=== PATIENT | female | born 1930 | race Hispanic/Latino ===

== ENCOUNTER 2018-05-05 10:01 | Emergency (ER) | payer OTHER ==
[2018-05-05 10:35] LABS: APPEARANCE,URINE Clear (CLEAR); BILIRUBIN,URINE Negative (NEGATIVE); COLOR,URINE Yellow (YELLOW); GLUCOSE, URINE (UA) Negative (NEGATIVE); KETONES,URINE Negative (NEGATIVE); LEUKOCYTE ESTERASE ,URINE Moderate (NEGATIVE); NITRATE,URINE Negative (NEGATIVE); OCCULT BLOOD,URINE Moderate (NEGATIVE); PROTEIN,URINE Trace (NEGATIVE)
[2018-05-05 10:50] LABS: WBC,URINE 0-1 /HPF (0-1)
[2018-05-05 10:51] LABS: BACTERIA,URINE Few /HPF (None Seen)
[2018-05-05] MEDS ORDERED: KETOROLAC TROMETHAMINE 15MG/ML ONE (10:55)
[2018-05-05] MEDS ORDERED: DIAZEPAM 2 MG TAB ONE (10:56)
== END 2018-05-05 13:30 | disposition home or self-care (01) ==
LOC: EDH 10:01
DX: M48.56XA Collapsed vertebra, not elsewhere classified, lumbar region, initial encounter for fracture (principal); E07.9 Disorder of thyroid, unspecified; I10 Essential (primary) hypertension; Z88.0 Allergy status to penicillin
CPT/HCPCS: 72100; 81001; 96372; 99285; J1885

== ENCOUNTER 2018-05-07 09:04 | Inpatient (IN) | payer OTHER ==
[~2018-05-07] VITALS: Ht 157.5 cm; Wt 63.1 kg
[2018-05-07 09:34] LABS: BASOPHILS % (AUTO) 0.3 % (0.0-5.0); EOSINOPHILS % (AUTO) 0.2 % (0.0-8.0); HEMATOCRIT 46.3 % (36-48); LYMPHOCYTES % (AUTO) 6.6 % (21.0-51.0); MEAN CORPUSCULAR HEMOGLOBIN 32.7 pg (27.0-33.0); MEAN CORPUSCULAR HGB CONC 34.3 g/dL (32.0-36.0); MEAN CORPUSCULAR VOLUME 95.5 fL (79-99); MONOCYTES % (AUTO) 15.1 % (3.0-13.0); NEUTROPHILS % (AUTO) 77.8 % (40.0-77.0); PLATELET COUNT (AUTO) 146 K/uL (130-400); RED BLOOD CELL COUNT(AUTO) 4.85 MIL/uL (4.00-5.50); RED CELL DISTRIBUTION WIDTH 13.1 % (11.0-15.5); WHITE BLOOD COUNT (AUTO) 10.4 K/uL (4.8-10.8)
[2018-05-07] MEDS ORDERED: FENTANYL CITRATE PF 50 MCG/1 ML 2ML VIAL ONE (09:40)
[2018-05-07 09:42] LABS: CREATININE 0.7 mg/dL (0.5-1.5)
[2018-05-07 09:51] LABS: ALBUMIN 3.8 g/dL (3.5-5.0); BILIRUBIN,DIRECT 0.3 mg/dL (0.0-0.3); BILIRUBIN,TOTAL 1.2 mg/dL (0.2-1.0); TOTAL PROTEIN, SERUM 7.7 g/dL (6.0-8.3)
[2018-05-07 09:54] LABS: INR 1.01 (0.85-1.15); PARTIAL THROMBOPLASTIN TIME 28.2 SEC (26.3-35.5); PROTHROMBIN TIME 10.6 SEC (9.6-11.6)
[2018-05-07] MEDS ORDERED: KETOROLAC TROMETHAMINE 15MG/ML ONE (10:26)
[2018-05-07] MEDS ORDERED: METOPROLOL TARTRATE 1 MG/ML 5ML VIAL IV ONE (10:26)
[2018-05-07 12:38] LABS: APPEARANCE,URINE Clear (CLEAR); BILIRUBIN,URINE Negative (NEGATIVE); COLOR,URINE Dark Yellow (YELLOW); GLUCOSE, URINE (UA) Negative (NEGATIVE); KETONES,URINE 15 mg/dL (NEGATIVE); LEUKOCYTE ESTERASE ,URINE Trace (NEGATIVE); NITRATE,URINE Negative (NEGATIVE); OCCULT BLOOD,URINE Nonhemolyzed Trace (NEGATIVE); PROTEIN,URINE Trace (NEGATIVE)
[2018-05-07 12:55] LABS: BACTERIA,URINE Rare /HPF (None Seen); SQUAMOUS EPITHELIAL CELL,UR 0-2 /HPF (0-2); WBC,URINE 0-1 /HPF (0-1)
[2018-05-07] MEDS ORDERED: METO-408 PO (13:25)
[2018-05-07] MEDS ORDERED: LOSA1TAB42 PO (13:25)
[2018-05-07] MEDS ORDERED: CYAN-35 PO (13:25)
[2018-05-07] MEDS ORDERED: DOCO1CAP5 PO (13:25)
[2018-05-07] MEDS ORDERED: SIMV20TA6 PO (13:25)
[2018-05-07] MEDS ORDERED: CHOL200013 PO (13:25)
[2018-05-07] MEDS ORDERED: LEVO112T7 PO (13:25)
[2018-05-07] MEDS ORDERED: ASPI-555 PO (13:25)
[2018-05-07] MEDS ORDERED: MULT-1203 PO (13:25)
[2018-05-07] MEDS ORDERED: UMEC1DIS IH (13:27)
[2018-05-07 13:30] VITALS: BP 151/85
[2018-05-07] MEDS ORDERED: METOPROLOL TARTRATE 1 MG/ML 5ML VIAL IV PRN (13:45)
[2018-05-07 15:26] LABS: CREATINE KINASE, TOTAL 37 U/L (21-232); MYOGLOBIN 55 ng/mL (10-92); TROPONIN I < 0.04 ng/mL (0.00-0.06)
[2018-05-07 16:00] VITALS: BP 145/92
[2018-05-07] MEDS ORDERED: ENOX60DI8 SQ (16:20)
[2018-05-07] MEDS: ACETAMINOPHEN-CODEINE 300/30MG TAB PO PRN ×2 (16:49→23:42)
[2018-05-07 17:00] LABS: HEMATOCRIT 44.5 % (36-48); MEAN CORPUSCULAR HEMOGLOBIN 33.1 pg (27.0-33.0); MEAN CORPUSCULAR HGB CONC 34.8 g/dL (32.0-36.0); NUCLEATED RED BLOOD CELLS 0.1 % (0.0-0.19); PLATELET COUNT (AUTO) 172 K/uL (130-400); RED BLOOD CELL COUNT(AUTO) 4.68 MIL/uL (4.00-5.50); WHITE BLOOD COUNT (AUTO) 10.8 K/uL (4.8-10.8)
[2018-05-07 19:47] VITALS: BP 118/85
[2018-05-07] MEDS ORDERED: APIXABAN 5 MG TABLET PO SCH (21:00)
[2018-05-07 21:25] LABS: CREATINE KINASE, TOTAL 36 U/L (21-232); MYOGLOBIN 44 ng/mL (10-92); TROPONIN I < 0.04 ng/mL (0.00-0.06)
[2018-05-08] VITALS (7 sets, daily range): BP systolic 122–155; BP diastolic 71–80
[2018-05-08 08:36] LABS: ALBUMIN 3.5 g/dL (3.5-5.0); BILIRUBIN,TOTAL 1.4 mg/dL (0.2-1.0); CREATININE 0.7 mg/dL (0.5-1.5); POTASSIUM 5.3 mmol/L (3.5-5.1); TOTAL PROTEIN, SERUM 7.6 g/dL (6.0-8.3)
[2018-05-08] MEDS: HYDROMORPHONE 1 MG/1 ML AMP IVP PRN (08:41)
[2018-05-08] MEDS: CYANOCOBALAMIN (VITAMIN B-12) 1,000 MCG TABLET PO SCH (08:41)
[2018-05-08] MEDS: METOPROLOL TARTRATE 25 MG TAB PO SCH ×3 (08:41→20:44)
[2018-05-08] MEDS: MULTIVITAMIN TABLET PO SCH (08:41)
[2018-05-08] MEDS: **HM** ANORO ELLIPTA 62.5-25MCG IH SCH (09:00)
[2018-05-08] MEDS ORDERED: SIMVASTATIN 20 MG TABLET PO SCH (09:00)
[2018-05-08] MEDS ORDERED: LEVOTHYROXINE 112 MCG TABLET PO SCH (09:00)
[2018-05-08] MEDS: **HM** VIT D3 2000 UNITS PO SCH (09:00)
[2018-05-08] MEDS ORDERED: ENOXAPARIN SODIUM 60 MG/0.6 ML SQ SCH ×2 (09:15→21:00)
[2018-05-08] MEDS: SODIUM CHLORIDE 0.9% 1000ML 1,000 ML IV SCH ×2 (09:23→22:16)
[2018-05-08] MEDS: CALCITONIN 3.7 ML AEROSOL NS SCH (11:27)
[2018-05-08] MEDS: SIMVASTATIN 20 MG TABLET PO SCH (20:43)
[2018-05-08] MEDS: APIXABAN 5 MG TABLET PO SCH (20:43)
[2018-05-08] MEDS ORDERED: ENOXAPARIN SODIUM 1 MG/KG SQ SCH (21:00)
[2018-05-08] MEDS: ACETAMINOPHEN-CODEINE 300/30MG TAB PO PRN (21:06)
[2018-05-09] MEDS: SODIUM CHLORIDE 0.9% 1000ML 1,000 ML IV SCH (02:16)
[2018-05-09 03:38] VITALS: BP 132/81
[2018-05-09] MEDS: LEVOTHYROXINE 112 MCG TABLET PO SCH (06:11)
[2018-05-09 07:35] LABS: HEMATOCRIT 42.1 % (36-48); MEAN CORPUSCULAR HEMOGLOBIN 32.7 pg (27.0-33.0); MEAN CORPUSCULAR HGB CONC 34.1 g/dL (32.0-36.0); PLATELET COUNT (AUTO) 126 K/uL (130-400); RED BLOOD CELL COUNT(AUTO) 4.39 MIL/uL (4.00-5.50); WHITE BLOOD COUNT (AUTO) 7.8 K/uL (4.8-10.8)
[2018-05-09 07:39] VITALS: BP 142/74
[2018-05-09 07:48] LABS: BILIRUBIN,TOTAL 1.1 mg/dL (0.2-1.0); CREATININE 0.6 mg/dL (0.5-1.5); POTASSIUM 5.2 mmol/L (3.5-5.1)
[2018-05-09] MEDS: APIXABAN 5 MG TABLET PO SCH ×2 (08:08→20:12)
[2018-05-09] MEDS: METOPROLOL TARTRATE 25 MG TAB PO SCH ×2 (08:08→20:12)
[2018-05-09] MEDS: CYANOCOBALAMIN (VITAMIN B-12) 1,000 MCG TABLET PO SCH (08:09)
[2018-05-09] MEDS: CALCITONIN 3.7 ML AEROSOL NS SCH (08:09)
[2018-05-09] MEDS: MULTIVITAMIN TABLET PO SCH (08:09)
[2018-05-09] MEDS: **HM** ANORO ELLIPTA 62.5-25MCG IH SCH (09:00)
[2018-05-09] MEDS: **HM** VIT D3 2000 UNITS PO SCH (09:00)
[2018-05-09] MEDS: ACETAMINOPHEN-CODEINE 300/30MG TAB PO PRN (10:00)
[2018-05-09 12:10] VITALS: BP 140/78
[2018-05-09 16:00] VITALS: BP 123/73
[2018-05-09 19:39] VITALS: BP 130/72
[2018-05-09] MEDS: SIMVASTATIN 20 MG TABLET PO SCH (20:12)
[2018-05-09 23:30] VITALS: BP 136/69
[2018-05-10 03:31] VITALS: BP 138/77
[2018-05-10] MEDS: LEVOTHYROXINE 112 MCG TABLET PO SCH (06:15)
[2018-05-10 07:00] VITALS: BP 155/89
[2018-05-10] MEDS: CEFTRIAXONE SODIUM 1 GM IVP SCH (08:14)
[2018-05-10] MEDS: MULTIVITAMIN TABLET PO SCH (08:14)
[2018-05-10] MEDS: CYANOCOBALAMIN (VITAMIN B-12) 1,000 MCG TABLET PO SCH (08:15)
[2018-05-10] MEDS: **HM** VIT D3 2000 UNITS PO SCH (08:15)
[2018-05-10] MEDS: METOPROLOL TARTRATE 25 MG TAB PO SCH ×2 (08:15→19:18)
[2018-05-10] MEDS: **HM** ANORO ELLIPTA 62.5-25MCG IH SCH (08:18)
[2018-05-10] MEDS: CALCITONIN 3.7 ML AEROSOL NS SCH (08:18)
[2018-05-10] MEDS: APIXABAN 5 MG TABLET PO SCH ×2 (08:33→19:18)
[2018-05-10] MEDS: ACETAMINOPHEN-CODEINE 300/30MG TAB PO PRN ×3 (08:39→23:35)
[2018-05-10 08:55] LABS: APPEARANCE,URINE TURBID (CLEAR); BILIRUBIN,URINE SMALL (NEGATIVE); COLOR,URINE ORANGE (YELLOW); GLUCOSE, URINE (UA) NEGATIVE (NEGATIVE); KETONES,URINE 40 mg/dL (NEGATIVE); LEUKOCYTE ESTERASE ,URINE LARGE (NEGATIVE); NITRATE,URINE POSITIVE (NEGATIVE); OCCULT BLOOD,URINE LARGE (NEGATIVE); PH,URINE 8.5 (5.0-8.0); PROTEIN,URINE >=300 (NEGATIVE)
[2018-05-10 09:26] LABS: BACTERIA,URINE Many /HPF (None Seen)
[2018-05-10 09:28] LABS: RBC,URINE 51-100 /HPF (0-1); TRIPLE PHOSPHATE CRYSTAL,UR Moderate /LPF (None Seen)
[2018-05-10 11:00] VITALS: BP 135/75
[2018-05-10] MEDS: SODIUM CHLORIDE 0.9% 1000ML 1,000 ML IV SCH ×2 (13:20)
[2018-05-10 16:00] VITALS: BP 124/62
[2018-05-10 19:16] VITALS: BP 131/76
[2018-05-10] MEDS: SIMVASTATIN 20 MG TABLET PO SCH (19:18)
[2018-05-10 23:42] VITALS: BP 148/92
[2018-05-11] MEDS: HYDROMORPHONE 1 MG/1 ML AMP IVP PRN ×3 (03:50→22:09)
[2018-05-11 04:05] VITALS: BP 121/70
[2018-05-11] MEDS: CEFTRIAXONE SODIUM 1 GM IVP SCH (06:15)
[2018-05-11] MEDS: LEVOTHYROXINE 112 MCG TABLET PO SCH (06:15)
[2018-05-11] MEDS: CALCITONIN 3.7 ML AEROSOL NS SCH (06:19)
[2018-05-11 07:23] VITALS: BP 133/77
[2018-05-11 08:13] LABS: CREATININE 0.5 mg/dL (0.5-1.5); POTASSIUM 4.3 mmol/L (3.5-5.1)
[2018-05-11] MEDS: **HM** VIT D3 2000 UNITS PO SCH (09:00)
[2018-05-11] MEDS: **HM** ANORO ELLIPTA 62.5-25MCG IH SCH (09:00)
[2018-05-11] MEDS: APIXABAN 5 MG TABLET PO SCH ×2 (09:21→20:47)
[2018-05-11] MEDS: CYANOCOBALAMIN (VITAMIN B-12) 1,000 MCG TABLET PO SCH (09:21)
[2018-05-11] MEDS: MULTIVITAMIN TABLET PO SCH (09:21)
[2018-05-11] MEDS: METOPROLOL TARTRATE 25 MG TAB PO SCH ×2 (09:21→20:47)
[2018-05-11 11:14] VITALS: BP 125/69
[2018-05-11 16:22] VITALS: BP 131/72
[2018-05-11 19:42] VITALS: BP 139/91
[2018-05-11] MEDS: SIMVASTATIN 20 MG TABLET PO SCH (20:47)
[2018-05-11 23:45] VITALS: BP 156/86
[2018-05-12 04:07] VITALS: BP 142/90
[2018-05-12] MEDS: LEVOTHYROXINE 112 MCG TABLET PO SCH (05:53)
[2018-05-12 07:49] VITALS: BP 146/90
[2018-05-12] MEDS: CYANOCOBALAMIN (VITAMIN B-12) 1,000 MCG TABLET PO SCH (09:16)
[2018-05-12] MEDS: MULTIVITAMIN TABLET PO SCH (09:16)
[2018-05-12] MEDS: METOPROLOL TARTRATE 25 MG TAB PO SCH (09:16)
[2018-05-12] MEDS: APIXABAN 5 MG TABLET PO SCH (09:16)
[2018-05-12] MEDS: CEFTRIAXONE SODIUM 1 GM IVP SCH (09:16)
[2018-05-12 11:06] VITALS: BP 159/99
[2018-05-12] MEDS ORDERED: FUROSEMIDE 10 MG/ML 2ML VIAL IV SCH (11:30)
[2018-05-12] MEDS: ACETAMINOPHEN-CODEINE 300/30MG TAB PO PRN (13:37)
[2018-05-12] MEDS ORDERED: IPRATROPIUM/ALBUTEROL SULFATE 3 ML SOLUTION IH SCH (14:00)
[2018-05-12 16:04] VITALS: BP 135/79
== END 2018-05-12 18:31 | DRG 543 ==
LOC: EDH 09:04 → EDHIP 11:30 → OBSVTOIN 11:30 → 2AH 13:19
PROVIDERS: ADMIT Internal Medicine Nephrology; ATTEND Internal Medicine Nephrology
DX: M80.08XA Age-related osteoporosis with current pathological fracture, vertebra(e), initial encounter for fracture (principal); N39.0 Urinary tract infection, site not specified; I48.1 Persistent atrial fibrillation; I10 Essential (primary) hypertension; E87.5 Hyperkalemia; J44.9 Chronic obstructive pulmonary disease, unspecified; E78.5 Hyperlipidemia, unspecified; E03.9 Hypothyroidism, unspecified; B96.20 Unspecified Escherichia coli [E. coli] as the cause of diseases classified elsewhere; Z90.710 Acquired absence of both cervix and uterus; Z86.11 Personal history of tuberculosis; Z98.42 Cataract extraction status, left eye; Z98.41 Cataract extraction status, right eye; Z88.0 Allergy status to penicillin; Z83.3 Family history of diabetes mellitus
CPT/HCPCS: 36415; 71045; 72100; 72131; 80048; 80053; 80076; 81001; 82550; 83690; 83874; 84484; 85025; 85027; 85610; 85730; 87077; 87088; 87186; 93005; 94640; 94664; 96372; 97039; A4218; A4344; J0696; J1170; J1650; J1885; J1940; J3010; J3490; J7030

== ENCOUNTER 2018-05-31 13:21 | Inpatient (IN) | payer OTHER ==
[~2018-05-31] VITALS: Ht 157.5 cm; Wt 57.9 kg
[~2018-05-31 13:21] MED LIST: ASPI-555 PO; CHOL200013 PO; CYAN-35 PO; DOCO1CAP5 PO; ENOX60DI8 SQ; LEVO112T7 PO; LOSA1TAB42 PO; METO-408 PO; MULT-1203 PO; SIMV20TA6 PO; UMEC1DIS IH
[2018-05-31] MEDS ORDERED: METHYLPREDNISOLONE SOD SUCC 125MG/2ML VIAL ONE (13:47)
[2018-05-31 14:02] LABS: CREATININE 0.7 mg/dL (0.5-1.5); POTASSIUM 4.2 mmol/L (3.5-5.1)
[2018-05-31 14:06] LABS: ALBUMIN 3.8 g/dL (3.5-5.0); BILIRUBIN,TOTAL 1.4 mg/dL (0.2-1.0); TOTAL PROTEIN, SERUM 7.9 g/dL (6.0-8.3)
[2018-05-31 14:07] LABS: B-TYPE NATRIURETIC PEPTIDE 407 pg/mL (0-100); BASOPHILS % (AUTO) 0.4 % (0.0-5.0); EOSINOPHILS % (AUTO) 0.2 % (0.0-8.0); HEMATOCRIT 44.3 % (36-48); LYMPHOCYTES % (AUTO) 15.1 % (21.0-51.0); MEAN CORPUSCULAR HEMOGLOBIN 33.4 pg (27.0-33.0); MEAN CORPUSCULAR HGB CONC 34.6 g/dL (32.0-36.0); MEAN CORPUSCULAR VOLUME 96.6 fL (79-99); MONOCYTES % (AUTO) 17.1 % (3.0-13.0); NEUTROPHILS % (AUTO) 67.2 % (40.0-77.0); PLATELET COUNT (AUTO) 165 K/uL (130-400); RED BLOOD CELL COUNT(AUTO) 4.59 MIL/uL (4.00-5.50); RED CELL DISTRIBUTION WIDTH 13.6 % (11.0-15.5); WHITE BLOOD COUNT (AUTO) 6.7 K/uL (4.8-10.8)
[2018-05-31 14:10] LABS: ABG BASE EXCESS -1.9 mmol/L (-2.0-3.0); ABG HCO3 21.1 mmol/L (21.0-28.0); ABG OXYGEN SATURATION 98.3 % (95.0-99.0); ABG PCO2 32 mmHg (32-45)
[2018-05-31] MEDS ORDERED: IPRATROPIUM/ALBUTEROL SULFATE 3 ML SOLUTION IH ONE (14:10)
[2018-05-31 14:16] LABS: CREATINE KINASE, TOTAL 28 U/L (21-232); MYOGLOBIN 29 ng/mL (10-92); TROPONIN I < 0.04 ng/mL (0.00-0.06)
[2018-05-31] MEDS ORDERED: LABETALOL 20 MG/4 ML DISP.SYRIN IV ONE (14:34)
[2018-05-31] MEDS ORDERED: LEVOFLOXACIN 750 MG/D5W 150 ML 150 ML ONE (15:11)
[2018-05-31] MEDS ORDERED: FUROSEMIDE 10 MG/ML 2ML VIAL ONE (15:11)
[2018-05-31 16:35] VITALS: BP 155/93
[2018-05-31] MEDS ORDERED: NA P133E22 RC (17:38)
[2018-05-31] MEDS ORDERED: LIDO700A30 TP (17:38)
[2018-05-31] MEDS ORDERED: METO25TA6 PO (17:38)
[2018-05-31] MEDS ORDERED: BISA10S PR (17:38)
[2018-05-31] MEDS ORDERED: ACET325C5 PO (17:38)
[2018-05-31] MEDS ORDERED: LOPE2CAP PO (17:38)
[2018-05-31] MEDS ORDERED: APIX5TAB PO (17:38)
[2018-05-31] MEDS ORDERED: TYL3 PO (17:38)
[2018-05-31] MEDS ORDERED: IPRA3AMP24 IH (17:38)
[2018-05-31] MEDS ORDERED: CALC3.8S NASAL (17:38)
[2018-05-31] MEDS ORDERED: MOM30 PO (17:38)
[2018-05-31] MEDS ORDERED: AMIO200T5 PO (17:39)
[2018-05-31] MEDS: IPRATROPIUM/ALBUTEROL SULFATE 3 ML SOLUTION IH SCH ×2 (18:03→23:29)
[2018-05-31] MEDS: BUDESONIDE 0.5 MG/2 ML INH IH SCH (18:03)
[2018-05-31 20:00] VITALS: BP 160/61
[2018-06-01] VITALS (7 sets, daily range): BP systolic 125–156; BP diastolic 72–98
[2018-06-01] MEDS: METHYLPREDNISOLONE SOD SUCC 40MG/ML 1ML IVP SCH ×3 (02:00→15:17)
[2018-06-01 05:27] LABS: HEMATOCRIT 42.6 % (36-48); MEAN CORPUSCULAR HEMOGLOBIN 32.3 pg (27.0-33.0); MEAN CORPUSCULAR HGB CONC 33.5 g/dL (32.0-36.0); MEAN CORPUSCULAR VOLUME 96.5 fL (79-99); NUCLEATED RED BLOOD CELLS 0.1 % (0.0-0.19); PLATELET COUNT (AUTO) 153 K/uL (130-400); RED BLOOD CELL COUNT(AUTO) 4.42 MIL/uL (4.00-5.50); RED CELL DISTRIBUTION WIDTH 13.5 % (11.0-15.5); WHITE BLOOD COUNT (AUTO) 2.5 K/uL (4.8-10.8)
[2018-06-01 05:39] LABS: CREATININE 0.8 mg/dL (0.5-1.5); POTASSIUM 3.7 mmol/L (3.5-5.1)
[2018-06-01 05:44] LABS: LYMPHOCYTES % (MANUAL) 28 % (22-44); MAN.DIFF COMMENT-IMPRESSION MANUAL DIFFERENTIAL; SEGMENTED NEUTROPHILS % 72 % (40-70)
[2018-06-01 05:45] LABS: PLATELET MORPHOLOGY COMMENT ADEQUATE
[2018-06-01] MEDS: IPRATROPIUM/ALBUTEROL SULFATE 3 ML SOLUTION IH SCH ×4 (06:20→23:52)
[2018-06-01] MEDS: BUDESONIDE 0.5 MG/2 ML INH IH SCH ×2 (06:20→18:46)
[2018-06-01] MEDS ORDERED: ACETAMINOPHEN 325 MG TAB PO PRN (08:15)
[2018-06-01] MEDS ORDERED: LOPERAMIDE HCL 2 MG CAP PO PRN (08:15)
[2018-06-01] MEDS ORDERED: FUROSEMIDE 10 MG/ML 2ML VIAL IV SCH (08:15)
[2018-06-01] MEDS ORDERED: BISACODYL 10 MG SUPP.RECT RC PRN (08:15)
[2018-06-01] MEDS ORDERED: NA PHOS DI BA PR PRN (08:15)
[2018-06-01] MEDS ORDERED: MAGNESIUM HYDROXIDE 30 ML/UDCUP PO PRN (08:15)
[2018-06-01] MEDS ORDERED: ACETAMINOPHEN-CODEINE 300/30MG TAB PO PRN (08:15)
[2018-06-01] MEDS ORDERED: NA PHOS M B PR PRN (08:15)
[2018-06-01] MEDS ORDERED: NON-FORMULARY MEDICATION 1 EACH (Umeclidinium Brm/Vilanterol Tr (Anoro Ellipta 62.5-25 Mcg IH SCH (09:00)
[2018-06-01] MEDS: ***HM***(Cholecalciferol (Vitamin D3) (Vitamin D3) 2,000 UNIT) PO SCH (09:00)
[2018-06-01] MEDS: METOPROLOL TARTRATE 25 MG TAB PO SCH ×2 (09:14→21:14)
[2018-06-01] MEDS: FISH OIL 1000 MG/CAP PO SCH (09:14)
[2018-06-01] MEDS: LIDOCAINE 5% TOPICAL PATCH TP SCH (09:14)
[2018-06-01] MEDS: AMIODARONE HCL 200 MG TABLET PO SCH ×2 (09:14→21:14)
[2018-06-01] MEDS: MULTIVITAMIN TABLET PO SCH (09:14)
[2018-06-01] MEDS: CYANOCOBALAMIN (VITAMIN B-12) 1,000 MCG TABLET PO SCH (09:14)
[2018-06-01] MEDS: APIXABAN 5 MG TABLET PO SCH ×2 (09:14→21:14)
[2018-06-01] MEDS: LEVOTHYROXINE 112 MCG TABLET PO SCH (09:15)
[2018-06-01] MEDS: LEVOFLOXACIN 500 MG/D5W 100 ML IV SCH (15:17)
[2018-06-01] MEDS: SIMVASTATIN 20 MG TABLET PO SCH (21:14)
[2018-06-02] MEDS: METHYLPREDNISOLONE SOD SUCC 40MG/ML 1ML IVP SCH ×2 (02:56→17:50)
[2018-06-02 03:55] VITALS: BP 137/81
[2018-06-02 05:07] LABS: BASOPHILS % (AUTO) 0.1 % (0.0-5.0); HEMATOCRIT 41.8 % (36-48); LYMPHOCYTES % (AUTO) 7.1 % (21.0-51.0); MEAN CORPUSCULAR HEMOGLOBIN 33.4 pg (27.0-33.0); MEAN CORPUSCULAR HGB CONC 34.5 g/dL (32.0-36.0); MEAN CORPUSCULAR VOLUME 96.7 fL (79-99); MONOCYTES % (AUTO) 6.2 % (3.0-13.0); NEUTROPHILS % (AUTO) 86.6 % (40.0-77.0); PLATELET COUNT (AUTO) 169 K/uL (130-400); RED BLOOD CELL COUNT(AUTO) 4.32 MIL/uL (4.00-5.50); RED CELL DISTRIBUTION WIDTH 13.6 % (11.0-15.5); WHITE BLOOD COUNT (AUTO) 9.4 K/uL (4.8-10.8)
[2018-06-02 05:24] LABS: CREATININE 0.8 mg/dL (0.5-1.5); POTASSIUM 4.2 mmol/L (3.5-5.1)
[2018-06-02] MEDS: LEVOTHYROXINE 112 MCG TABLET PO SCH (06:26)
[2018-06-02] MEDS: IPRATROPIUM/ALBUTEROL SULFATE 3 ML SOLUTION IH SCH ×4 (06:41→23:07)
[2018-06-02] MEDS: BUDESONIDE 0.5 MG/2 ML INH IH SCH ×2 (06:41→18:46)
[2018-06-02] MEDS ORDERED: CALCITONIN 3.7 ML AEROSOL NS SCH ×2 (07:30→09:48)
[2018-06-02 08:00] VITALS: BP 142/78
[2018-06-02] MEDS: ***HM***(Cholecalciferol (Vitamin D3) (Vitamin D3) 2,000 UNIT) PO SCH (08:42)
[2018-06-02] MEDS: AMIODARONE HCL 200 MG TABLET PO SCH ×2 (08:49→20:38)
[2018-06-02] MEDS: LOSARTAN 50 MG TABLET PO SCH (08:49)
[2018-06-02] MEDS: METOPROLOL TARTRATE 25 MG TAB PO SCH ×2 (08:49→20:38)
[2018-06-02] MEDS: FISH OIL 1000 MG/CAP PO SCH (08:50)
[2018-06-02] MEDS: CYANOCOBALAMIN (VITAMIN B-12) 1,000 MCG TABLET PO SCH (08:50)
[2018-06-02] MEDS: MULTIVITAMIN TABLET PO SCH (08:50)
[2018-06-02] MEDS: APIXABAN 5 MG TABLET PO SCH ×2 (08:50→20:38)
[2018-06-02] MEDS: LIDOCAINE 5% TOPICAL PATCH TP SCH (08:51)
[2018-06-02 12:00] VITALS: BP 128/82
[2018-06-02 16:00] VITALS: BP 120/73
[2018-06-02] MEDS: SPIRONOLACTONE 25 MG TAB PO SCH (17:30)
[2018-06-02] MEDS: FUROSEMIDE 40 MG TABLET PO SCH (17:30)
[2018-06-02] MEDS ORDERED: FUROSEMIDE 40 MG TABLET ONE (17:41)
[2018-06-02] MEDS ORDERED: SPIRONOLACTONE 25 MG TAB ONE (17:42)
[2018-06-02] MEDS: LEVOFLOXACIN 500 MG/D5W 100 ML IV SCH (17:50)
[2018-06-02 19:10] VITALS: BP 125/77
[2018-06-02] MEDS: SIMVASTATIN 20 MG TABLET PO SCH (20:38)
[2018-06-03 00:10] VITALS: BP 133/73
[2018-06-03] MEDS: METHYLPREDNISOLONE SOD SUCC 40MG/ML 1ML IVP SCH ×2 (03:07→14:18)
[2018-06-03 04:30] VITALS: BP 130/86
[2018-06-03 06:01] LABS: CREATININE 0.8 mg/dL (0.5-1.5); POTASSIUM 4.1 mmol/L (3.5-5.1)
[2018-06-03] MEDS: IPRATROPIUM/ALBUTEROL SULFATE 3 ML SOLUTION IH SCH ×2 (06:50→11:36)
[2018-06-03] MEDS: BUDESONIDE 0.5 MG/2 ML INH IH SCH (07:00)
[2018-06-03 08:31] VITALS: BP 130/73
[2018-06-03] MEDS: ***HM***(Cholecalciferol (Vitamin D3) (Vitamin D3) 2,000 UNIT) PO SCH (09:00)
[2018-06-03] MEDS: LOSARTAN 50 MG TABLET PO SCH (09:56)
[2018-06-03] MEDS: MULTIVITAMIN TABLET PO SCH (09:57)
[2018-06-03] MEDS: SPIRONOLACTONE 25 MG TAB PO SCH (09:57)
[2018-06-03] MEDS: FISH OIL 1000 MG/CAP PO SCH (09:57)
[2018-06-03] MEDS: METOPROLOL TARTRATE 25 MG TAB PO SCH (09:57)
[2018-06-03] MEDS: AMIODARONE HCL 200 MG TABLET PO SCH (09:58)
[2018-06-03] MEDS: FUROSEMIDE 40 MG TABLET PO SCH (09:58)
[2018-06-03] MEDS: LIDOCAINE 5% TOPICAL PATCH TP SCH (10:00)
[2018-06-03] MEDS: LEVOTHYROXINE 112 MCG TABLET PO SCH (10:07)
[2018-06-03] MEDS: CYANOCOBALAMIN (VITAMIN B-12) 1,000 MCG TABLET PO SCH (10:12)
[2018-06-03] MEDS: APIXABAN 5 MG TABLET PO SCH (10:40)
[2018-06-03 11:32] VITALS: BP 123/83
[2018-06-03] MEDS: LEVOFLOXACIN 500 MG/D5W 100 ML IV SCH (14:18)
[2018-06-03 16:00] VITALS: BP 107/74
== END 2018-06-03 18:14 | disposition home or self-care (01) | DRG 190 ==
LOC: EDH 13:21 → EDHIP 15:17 → 3AH 16:42
PROVIDERS: ADMIT Internal Medicine Nephrology; ATTEND Internal Medicine Nephrology
DX: J44.1 Chronic obstructive pulmonary disease with (acute) exacerbation (principal); I50.33 Acute on chronic diastolic (congestive) heart failure; I48.1 Persistent atrial fibrillation; E87.1 Hypo-osmolality and hyponatremia; M48.56XA Collapsed vertebra, not elsewhere classified, lumbar region, initial encounter for fracture; E87.70 Fluid overload, unspecified; I48.91 Unspecified atrial fibrillation; E03.9 Hypothyroidism, unspecified; E78.5 Hyperlipidemia, unspecified; I11.0 Hypertensive heart disease with heart failure; Z79.01 Long term (current) use of anticoagulants; Z90.710 Acquired absence of both cervix and uterus; Z86.11 Personal history of tuberculosis; Z88.0 Allergy status to penicillin; Z98.42 Cataract extraction status, left eye; Z98.41 Cataract extraction status, right eye; Z83.3 Family history of diabetes mellitus
CPT/HCPCS: 36415; 36600; 71045; 80048; 80053; 82435; 82550; 82803; 82947; 83605; 83735; 83874; 83880; 84132; 84295; 84484; 85018; 85025; 85027; 87804; 93005; 93306; 94640; 94664; 99291; A4218; J1940; J1956; J2920; J2930

== ENCOUNTER 2018-11-20 10:51 | Emergency (ER) | payer OTHER ==
[~2018-11-20 10:51] MED LIST changes: +APIX5TAB PO; -ASPI-555 PO; +BACL5TAB PO; +CALC-866 PO; -CHOL200013 PO; +DILT30TA3 PO; -DOCO1CAP5 PO; -ENOX60DI8 SQ; +FURO40TA5 PO; +IPRA3AMP24 IH; -LOSA1TAB42 PO; +METH4TAB15 PO; -MULT-1203 PO; +NAPR-1023 PO; +SPIR25TA6 PO
[2018-11-20] MEDS ORDERED: KETOROLAC TROMETHAMINE 15MG/ML ONE (11:36)
[2018-11-20] MEDS ORDERED: DIAZEPAM 5 MG TABLET ONE (11:36)
[2018-11-20 11:43] LABS: BASOPHILS % (AUTO) 0.2 % (0.0-5.0); EOSINOPHILS % (AUTO) 0.2 % (0.0-8.0); HEMATOCRIT 48.9 % (36-48); LYMPHOCYTES % (AUTO) 14.9 % (21.0-51.0); MEAN CORPUSCULAR HEMOGLOBIN 33.2 pg (27.0-33.0); MEAN CORPUSCULAR HGB CONC 34.3 g/dL (32.0-36.0); MONOCYTES % (AUTO) 21.7 % (3.0-13.0); NUCLEATED RED BLOOD CELLS 0.1 % (0.0-0.19); PLATELET COUNT (AUTO) 153 K/uL (130-400); RED BLOOD CELL COUNT(AUTO) 5.04 MIL/uL (4.00-5.50); RED CELL DISTRIBUTION WIDTH 12.6 % (11.0-15.5); WHITE BLOOD COUNT (AUTO) 9.6 K/uL (4.8-10.8)
[2018-11-20 12:11] LABS: APPEARANCE,URINE Clear (CLEAR); BILIRUBIN,URINE Negative (NEGATIVE); COLOR,URINE Yellow (YELLOW); GLUCOSE, URINE (UA) Negative (NEGATIVE); KETONES,URINE Negative (NEGATIVE); LEUKOCYTE ESTERASE ,URINE Trace (NEGATIVE); NITRATE,URINE Negative (NEGATIVE); OCCULT BLOOD,URINE Small (NEGATIVE); PROTEIN,URINE Negative (NEGATIVE)
[2018-11-20 12:22] LABS: BACTERIA,URINE Rare /HPF (None Seen); SQUAMOUS EPITHELIAL CELL,UR Rare /HPF (0-2); WBC,URINE 0-1 /HPF (0-1)
[2018-11-20 12:49] LABS: CREATININE 0.8 mg/dL (0.5-1.5); POTASSIUM 3.9 mmol/L (3.5-5.1)
[2018-11-20 12:53] LABS: ALBUMIN 4.4 g/dL (3.5-5.0); BILIRUBIN,DIRECT 0.1 mg/dL (0.0-0.3); BILIRUBIN,TOTAL 0.6 mg/dL (0.2-1.0); TOTAL PROTEIN, SERUM 7.7 g/dL (6.0-8.3)
[2018-11-20] MEDS ORDERED: METOPROLOL TARTRATE 1 MG/ML 5ML VIAL IV ONE (13:29)
== END 2018-11-20 14:46 | disposition home or self-care (01) ==
LOC: EDH 10:51
DX: M48.56XA Collapsed vertebra, not elsewhere classified, lumbar region, initial encounter for fracture (principal); I10 Essential (primary) hypertension; E07.9 Disorder of thyroid, unspecified; J44.9 Chronic obstructive pulmonary disease, unspecified; Z88.0 Allergy status to penicillin; Z90.710 Acquired absence of both cervix and uterus; Z90.89 Acquired absence of other organs
CPT/HCPCS: 36415; 74176; 80048; 80076; 81001; 83690; 84484; 85025; 93005; 96374; 96375; 99285; J1885; J3490

== ENCOUNTER 2018-12-02 17:34 | Emergency (ER) | payer OTHER ==
[2018-12-02] MEDS ORDERED: HYDROCODONE/ACETAMINOPHEN 10/325 MG TAB ONE (18:31)
[2018-12-02] MEDS ORDERED: CYCLOBENZAPRINE HCL 10 MG TABLET ONE (18:31)
[2018-12-02] MEDS ORDERED: KETOROLAC TROMETHAMINE 30MG/ML ONE (19:49)
== END 2018-12-02 19:58 | disposition home or self-care (01) ==
LOC: EDH 17:34
DX: M48.56XA Collapsed vertebra, not elsewhere classified, lumbar region, initial encounter for fracture (principal); J44.9 Chronic obstructive pulmonary disease, unspecified; E07.9 Disorder of thyroid, unspecified; I10 Essential (primary) hypertension; Z90.710 Acquired absence of both cervix and uterus; Z88.0 Allergy status to penicillin
CPT/HCPCS: 96372; 99283; J1885

== ENCOUNTER 2019-04-11 06:32 | Inpatient (IN) | payer OTHER ==
[~2019-04-11] VITALS: Ht 154.9 cm; Wt 50.1 kg
[~2019-04-11 06:32] MED LIST changes: +SIMV-43 PO; -SIMV20TA6 PO
[2019-04-11 07:00] LABS: BASOPHILS % (AUTO) 0.3 % (0.0-5.0); EOSINOPHILS % (AUTO) 0.3 % (0.0-8.0); HEMATOCRIT 37.9 % (36-48); LYMPHOCYTES % (AUTO) 26.4 % (21.0-51.0); MEAN CORPUSCULAR HEMOGLOBIN 30.2 pg (27.0-33.0); MEAN CORPUSCULAR HGB CONC 33.7 g/dL (32.0-36.0); MEAN CORPUSCULAR VOLUME 89.5 fL (79-99); MONOCYTES % (AUTO) 28.8 % (3.0-13.0); NEUTROPHILS % (AUTO) 44.2 % (40.0-77.0); PLATELET COUNT (AUTO) 191 K/uL (130-400); RED BLOOD CELL COUNT(AUTO) 4.23 MIL/uL (4.00-5.50); RED CELL DISTRIBUTION WIDTH 14.7 % (11.0-15.5); WHITE BLOOD COUNT (AUTO) 7.4 K/uL (4.8-10.8)
[2019-04-11 07:19] LABS: CARBON DIOXIDE 29 mmol/L (21-32); CHLORIDE 101 mmol/L (101-111); CREATININE 0.7 mg/dL (0.5-1.5); GLOMERULAR FILTR. RATE CALC 84 mL/min (>60); GLUCOSE,RANDOM 104 mg/dL (70-105); POTASSIUM 4.4 mmol/L (3.5-5.1); SODIUM SERUM 136 mmol/L (136-145); UREA NITROGEN, BLOOD 12 mg/dL (7-18)
[2019-04-11 07:23] LABS: INR 1.04 (0.85-1.15); PROTHROMBIN TIME 10.9 SEC (9.6-11.6)
[2019-04-11 07:39] LABS: ALANINE AMINOTRANSFERASE 9 U/L (12-78); ALBUMIN 3.3 g/dL (3.5-5.0); ASPARTATE AMINOTRANSFERASE 19 U/L (10-37); BILIRUBIN,TOTAL 1.1 mg/dL (0.2-1.0); CREATINE KINASE, TOTAL 20 U/L (21-232); MYOGLOBIN 20 ng/mL (10-92); TOTAL PROTEIN, SERUM 7.2 g/dL (6.0-8.3); TROPONIN I < 0.04 ng/mL (0.00-0.06)
[2019-04-11] MEDS ORDERED: ASPIRIN 325 MG TABLET ONE (08:11)
[2019-04-11] MEDS ORDERED: FUROSEMIDE 10 MG/ML 4ML VIAL ONE (08:11)
[2019-04-11 08:50] LABS: APPEARANCE,URINE Clear (CLEAR); BILIRUBIN,URINE Negative (NEGATIVE); COLOR,URINE Yellow (YELLOW); GLUCOSE, URINE (UA) Negative (NEGATIVE); KETONES,URINE Negative (NEGATIVE); LEUKOCYTE ESTERASE ,URINE Trace (NEGATIVE); NITRATE,URINE Negative (NEGATIVE); OCCULT BLOOD,URINE Small (NEGATIVE); PROTEIN,URINE POS 1+ mg/dL (NEGATIVE)
[2019-04-11 09:12] LABS: BACTERIA,URINE Rare /HPF (None Seen); MUCUS,URINE Few LPF (None Seen); SQUAMOUS EPITHELIAL CELL,UR 0-2 /HPF (0-2); WBC,URINE 0-1 /HPF (0-1)
[2019-04-11] MEDS ORDERED: METHYLPREDNISOLONE SOD SUCC 40MG/ML 1ML ONE (10:50)
[2019-04-11] MEDS ORDERED: PANTOPRAZOLE SODIUM 40 MG TABLET.DR PO ONE ×2 (10:50→11:06)
[2019-04-11] MEDS: METHYLPREDNISOLONE SOD SUCC 40MG/ML 1ML IVP SCH ×2 (11:00→21:23)
[2019-04-11] MEDS: FUROSEMIDE 10 MG/ML 2ML VIAL IVP SCH ×2 (11:00→21:23)
[2019-04-11 13:20] VITALS: BP 126/82
[2019-04-11] MEDS: IPRATROPIUM 0.5 MG/2.5 ML INH IH SCH ×2 (13:53→21:55)
[2019-04-11] MEDS ORDERED: CALC-190 PO (14:56)
[2019-04-11] MEDS ORDERED: ACET-66 PO (14:56)
[2019-04-11] MEDS ORDERED: MONT10TA24 PO (14:56)
--- NOTE | 2019-04-11 15:28 | NUR ---
DR KELSEY MARMOLEJO VISITED WITH PATIENT. POC DISCUSSED. NEW ORDERS RECEIVED AND CARRIED OUT.
[2019-04-11 16:00] VITALS: BP 124/73
[2019-04-11 19:43] VITALS: BP 131/85
[2019-04-12] VITALS (7 sets, daily range): BP systolic 92–133; BP diastolic 56–82
[2019-04-12 06:18] LABS: BASOPHILS % (AUTO) 0.5 % (0.0-5.0); HEMATOCRIT 36.4 % (36-48); LYMPHOCYTES % (AUTO) 31.1 % (21.0-51.0); MEAN CORPUSCULAR HEMOGLOBIN 30.4 pg (27.0-33.0); MEAN CORPUSCULAR HGB CONC 33.5 g/dL (32.0-36.0); MEAN CORPUSCULAR VOLUME 90.7 fL (79-99); MONOCYTES % (AUTO) 4.5 % (3.0-13.0); NEUTROPHILS % (AUTO) 63.9 % (40.0-77.0); NUCLEATED RED BLOOD CELLS 0.1 % (0.0-0.19); PLATELET COUNT (AUTO) 175 K/uL (130-400); RED BLOOD CELL COUNT(AUTO) 4.01 MIL/uL (4.00-5.50); RED CELL DISTRIBUTION WIDTH 14.4 % (11.0-15.5); WHITE BLOOD COUNT (AUTO) 2.2 K/uL (4.8-10.8)
[2019-04-12] MEDS: IPRATROPIUM 0.5 MG/2.5 ML INH IH SCH ×2 (06:34→22:02)
[2019-04-12 06:36] LABS: ALBUMIN 2.9 g/dL (3.5-5.0); BILIRUBIN,TOTAL 0.6 mg/dL (0.2-1.0); CREATININE 0.7 mg/dL (0.5-1.5); TOTAL PROTEIN, SERUM 6.7 g/dL (6.0-8.3)
[2019-04-12 07:17] LABS: BASOPHILS % (MANUAL) 1 % (0-2); LYMPHOCYTES % (MANUAL) 31 % (22-44); MAN.DIFF COMMENT-IMPRESSION MANUAL DIFFERENTIAL; MONOCYTES % (MANUAL) 2 % (2-9); SEGMENTED NEUTROPHILS % 66 % (40-70)
[2019-04-12 07:18] LABS: PLATELET MORPHOLOGY COMMENT ADEQUATE
[2019-04-12 07:25] LABS: B-TYPE NATRIURETIC PEPTIDE 585 pg/mL (0-100)
[2019-04-12] MEDS ORDERED: ACETAMINOPHEN EXTRA STRENGTH 500 MG TABLET PO PRN (07:30)
[2019-04-12] MEDS: LEVOTHYROXINE 112 MCG TABLET PO SCH (07:41)
[2019-04-12] MEDS: CALCIUM 600 + VITAMIN D 400 TABLET PO SCH (09:44)
[2019-04-12] MEDS: PANTOPRAZOLE SODIUM 40 MG TABLET.DR PO SCH (09:44)
[2019-04-12] MEDS: MONTELUKAST SODIUM 10 MG TAB PO SCH (09:44)
[2019-04-12] MEDS: APIXABAN 5 MG TABLET PO SCH ×2 (09:45→21:33)
--- NOTE | 2019-04-12 10:08 | NUR ---
call dr. chakrabotry on her office and ask her if she wanted to continue the patient with the home medication cardizem and metoprolol. mentioned to her that she wrote in her notes that she will continue the eliquis, cardizem and metoprolol but the cardizem and metoprolol was not continued. she ordered to continue it.
[2019-04-12] MEDS ORDERED: NON-FORMULARY MEDICATION 1 EACH (Metoprolol Succinate 25 MG) PO SCH (10:15)
[2019-04-12] MEDS: METOPROLOL TARTRATE 25 MG TAB PO SCH ×2 (10:45→21:33)
[2019-04-12] MEDS: DILTIAZEM HCL 60 MG TABLET PO SCH ×3 (10:59→21:34)
[2019-04-12] MEDS: FUROSEMIDE 10 MG/ML 2ML VIAL IVP SCH ×2 (11:00→21:41)
[2019-04-12] MEDS: METHYLPREDNISOLONE SOD SUCC 40MG/ML 1ML IVP SCH ×2 (11:01→21:41)
--- NOTE | 2019-04-12 13:45 | NUR ---
DCP CM met with pt and son discussed dc plans. Pt is semi-independent prior to admission, lives at home w/son. Denies any equipments/services. Pt feels safe to go back home, son able to assist with transportation and needs. Pt declined placement at this time. DC plan to home once stable. CM to cont to follow up. Addendum: 04/12/19 at 1347 by MARIA A QUEVEDO LVN CM Amended: Links added.
[2019-04-12] MEDS ORDERED: DILTIAZEM HCL 60 MG TABLET PO SCH (14:00)
--- NOTE | 2019-04-12 18:03 | NUR ---
pt states she has a prolapsed bladder and she showed me a device she uses to hold it up. Addendum: 04/12/19 at 1808 by ARDHA BECK RN RN Amended: Links added.
[2019-04-12] MEDS: SIMVASTATIN 10 MG TABLET PO SCH (21:33)
[2019-04-13] VITALS: BP 99/77
[2019-04-13 04:05] VITALS: BP 116/71
[2019-04-13 06:05] LABS: HEMATOCRIT 36.6 % (36-48); MEAN CORPUSCULAR HEMOGLOBIN 29.9 pg (27.0-33.0); MEAN CORPUSCULAR HGB CONC 33.3 g/dL (32.0-36.0); MEAN CORPUSCULAR VOLUME 89.9 fL (79-99); PLATELET COUNT (AUTO) 217 K/uL (130-400); RED BLOOD CELL COUNT(AUTO) 4.07 MIL/uL (4.00-5.50); RED CELL DISTRIBUTION WIDTH 14.9 % (11.0-15.5); WHITE BLOOD COUNT (AUTO) 6.2 K/uL (4.8-10.8)
[2019-04-13] MEDS: IPRATROPIUM 0.5 MG/2.5 ML INH IH SCH ×3 (06:26→21:13)
[2019-04-13 06:29] LABS: CREATININE 0.8 mg/dL (0.5-1.5); POTASSIUM 4.1 mmol/L (3.5-5.1); THYROID STIMULATING HORMONE 0.94 uIU/mL (0.36-3.74)
[2019-04-13 07:00] VITALS: BP 114/81
[2019-04-13 08:29] LABS: BAND NEUTROPHILS % (MANUAL) 6 % (0-2); LYMPHOCYTES % (MANUAL) 6 % (22-44); MONOCYTES % (MANUAL) 3 % (2-9); REACTIVE LYMPHOCYTES 3 % (0-0); SEGMENTED NEUTROPHILS % 82 % (40-70)
[2019-04-13 08:30] LABS: MAN.DIFF COMMENT-IMPRESSION MANUAL DIFFERENTIAL
[2019-04-13 08:31] LABS: PLATELET MORPHOLOGY COMMENT ADEQUATE
--- NOTE | 2019-04-13 08:47 | NUR ---
CONSULT CALL DR LI'S OFFICE AND NOTIFIED THEM OF THE CONSULT. 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
[2019-04-13] MEDS: CALCIUM 600 + VITAMIN D 400 TABLET PO SCH (09:43)
[2019-04-13] MEDS: LEVOTHYROXINE 112 MCG TABLET PO SCH (09:44)
[2019-04-13] MEDS: APIXABAN 5 MG TABLET PO SCH ×2 (09:44→23:35)
[2019-04-13] MEDS: PREDNISONE 20 MG TABLET PO SCH (09:44)
[2019-04-13] MEDS: DILTIAZEM HCL 60 MG TABLET PO SCH ×3 (09:45→23:35)
[2019-04-13] MEDS: METOPROLOL TARTRATE 25 MG TAB PO SCH ×2 (09:46→23:35)
[2019-04-13] MEDS: MONTELUKAST SODIUM 10 MG TAB PO SCH (09:46)
[2019-04-13] MEDS: PANTOPRAZOLE SODIUM 40 MG TABLET.DR PO SCH (09:47)
[2019-04-13] MEDS: FUROSEMIDE 20 MG TABLET PO SCH ×2 (09:47→23:35)
[2019-04-13 11:00] VITALS: BP 111/75
--- NOTE | 2019-04-13 13:15 | NUR ---
paged dr. chakraborty at this time to notify her about dr. brown's recommendation and plan of treatment.
[2019-04-13] MEDS ORDERED: DIGOXIN 250 MCG/ML 2ML AMP IV SCH ×2 (13:30→19:30)
[2019-04-13 16:00] VITALS: BP 97/66
[2019-04-13 20:00] VITALS: BP 113/65
[2019-04-13] MEDS: SIMVASTATIN 10 MG TABLET PO SCH (21:00)
[2019-04-14] VITALS: BP 113/71
[2019-04-14 04:00] VITALS: BP 100/62
[2019-04-14 05:50] LABS: ALBUMIN 2.8 g/dL (3.5-5.0); BILIRUBIN,DIRECT 0.1 mg/dL (0.0-0.3); BILIRUBIN,TOTAL 0.5 mg/dL (0.2-1.0); CREATININE 0.7 mg/dL (0.5-1.5); DIGOXIN 1.3 ng/mL (0.50-2.00); POTASSIUM 3.2 mmol/L (3.5-5.1)
[2019-04-14] MEDS: IPRATROPIUM 0.5 MG/2.5 ML INH IH SCH ×2 (06:04→13:33)
[2019-04-14 08:00] VITALS: BP 101/62
[2019-04-14] MEDS ORDERED: POTASSIUM CHLORIDE 10MEQ/100ML 100 ML IV PRN (08:00)
[2019-04-14] MEDS ORDERED: POTASSIUM CHLORIDE 10% ELIXIR 20 MEQ/15 ML UDCUP PO PRN (08:00)
[2019-04-14] MEDS ORDERED: LIDOCAINE HCL-MPF 1% 2ML VIAL IV PRN (08:00)
[2019-04-14] MEDS ORDERED: DIGOXIN 125 MCG TABLET PO SCH (09:00)
[2019-04-14] MEDS: FUROSEMIDE 20 MG TABLET PO SCH (09:00)
[2019-04-14] MEDS: PREDNISONE 20 MG TABLET PO SCH (09:54)
[2019-04-14] MEDS: APIXABAN 5 MG TABLET PO SCH (09:55)
[2019-04-14] MEDS: CALCIUM 600 + VITAMIN D 400 TABLET PO SCH (09:55)
[2019-04-14] MEDS: METOPROLOL TARTRATE 25 MG TAB PO SCH (09:55)
[2019-04-14] MEDS: PANTOPRAZOLE SODIUM 40 MG TABLET.DR PO SCH (09:55)
[2019-04-14] MEDS: LEVOTHYROXINE 112 MCG TABLET PO SCH (09:56)
[2019-04-14] MEDS: MONTELUKAST SODIUM 10 MG TAB PO SCH (09:56)
[2019-04-14] MEDS: DILTIAZEM HCL 60 MG TABLET PO SCH ×2 (09:56→14:56)
[2019-04-14] MEDS: POTASSIUM CHLORIDE 20 MEQ ERTAB PO PRN ×2 (09:58→11:45)
--- NOTE | 2019-04-14 10:02 | NUR ---
Pt's potassium level 3.2, its ordered to cover her with half dose of protocol which comes out to 30 meq i gave her 20 meq po now and will give another 10 meq in 2 hours then recheck level and inform md of level
--- NOTE | 2019-04-14 10:08 | NUR ---
verbal order received to hold lasix due to pt's low potassium level
[2019-04-14 12:00] VITALS: BP 103/73
--- NOTE | 2019-04-14 14:55 | NUR ---
NURSING NOTE Paged Dr. Aga Alejo twice. At 1430 to his office and at 1445 to his office. Pending for her to call back as stated by her staff. Addendum: 04/14/19 at 1457 by MILENA ARIAS RN RN Would like to notify her of potassium level 4.[address] Saldana already came and patient can leave from his standpoint; pending for doctor to call back.
[2019-04-14 16:00] VITALS: BP 124/68
--- NOTE | 2019-04-14 16:18 | NUR ---
Patient heron and daughter stated understanding of all discharge instructions of aftercare for acute chf, hypokalemia and atrial fibrillation; iv access removed; received ok to discharge from dr deanna naranjo and dr brown, current potassium level with in normal limits; pt will be leaving to home via daughter, wheelchair to downstairs.
[2019-05-15] MEDS ORDERED: TRIA10.8 NS (02:22)
[2019-05-15] MEDS ORDERED: DILT120C47 PO (02:22)
[2019-05-15] MEDS ORDERED: CALC3.8S NS (02:22)
[2019-05-15] MEDS ORDERED: TRAM50TA4 PO (02:22)
[2019-05-15] MEDS ORDERED: DOCU100T PO (02:22)
[2019-05-15] MEDS ORDERED: DIGO125T87 PO (02:22)
== END 2019-04-14 16:40 | disposition home or self-care (01) | DRG 291 ==
LOC: EDH 06:32 → EDHIP 10:10 → 3BH 13:07
PROVIDERS: ADMIT Internal Medicine Nephrology; ATTEND Internal Medicine Nephrology
DX: I11.0 Hypertensive heart disease with heart failure (principal); I50.31 Acute diastolic (congestive) heart failure; J44.1 Chronic obstructive pulmonary disease with (acute) exacerbation; I48.19 Other persistent atrial fibrillation; M48.56XA Collapsed vertebra, not elsewhere classified, lumbar region, initial encounter for fracture; I48.91 Unspecified atrial fibrillation; Z79.01 Long term (current) use of anticoagulants; D72.819 Decreased white blood cell count, unspecified; I07.1 Rheumatic tricuspid insufficiency; I27.81 Cor pulmonale (chronic); E03.9 Hypothyroidism, unspecified; I27.29 Other secondary pulmonary hypertension; E78.5 Hyperlipidemia, unspecified; E87.6 Hypokalemia; Z83.3 Family history of diabetes mellitus; Z86.11 Personal history of tuberculosis; Z90.710 Acquired absence of both cervix and uterus; Z88.0 Allergy status to penicillin
CPT/HCPCS: 36415; 71045; 80048; 80053; 80076; 80162; 81001; 82550; 83605; 83874; 83880; 84132; 84145; 84443; 84484; 85025; 85610; 85730; 87040; 87088; 93005; 93306; 94640; 94664; G0378; J1160; J1940; J2920

== ENCOUNTER 2020-10-05 19:27 | Emergency (ER) | payer OTHER ==
[~2020-10-05 19:27] MED LIST changes: -BACL5TAB PO; +CALC-190 PO; -CALC-866 PO; +CALC3.8S NS; +DIGO125T71 PO; +DILT120C47 PO; -DILT30TA3 PO; +DOCU100T PO; -IPRA3AMP24 IH; -METH4TAB15 PO; +MONT10TA32 PO; -NAPR-1023 PO; -SPIR25TA6 PO; +TRIA10.8 NS; -UMEC1DIS IH
[2020-10-05 20:26] LABS: BASOPHILS % (AUTO) 0.4 % (0.0-5.0); HEMATOCRIT 43.9 % (36-48); LYMPHOCYTES % (AUTO) 11.8 % (21.0-51.0); MEAN CORPUSCULAR HEMOGLOBIN 32.6 pg (27.0-33.0); MEAN CORPUSCULAR HGB CONC 34.6 g/dL (32.0-36.0); MEAN CORPUSCULAR VOLUME 94.2 fL (79-99); MONOCYTES % (AUTO) 1.4 % (3.0-13.0); NEUTROPHILS % (AUTO) 79.1 % (40.0-77.0); PLATELET COUNT (AUTO) 202 K/uL (130-400); RED BLOOD CELL COUNT(AUTO) 4.66 MIL/uL (4.00-5.50); RED CELL DISTRIBUTION WIDTH 12.6 % (11.0-15.5); WHITE BLOOD COUNT (AUTO) 5.2 K/uL (4.8-10.8)
[2020-10-05 20:37] LABS: CREATININE 1.1 mg/dL (0.5-1.5); INR 1.2 (0.85-1.15); PROTHROMBIN TIME 12.9 SEC (9.6-11.6)
[2020-10-05 20:39] LABS: PARTIAL THROMBOPLASTIN TIME 30.8 SEC (26.3-35.5)
[2020-10-05 20:41] LABS: ALBUMIN 3.5 g/dL (3.5-5.0); BILIRUBIN,TOTAL 0.6 mg/dL (0.2-1.0); TOTAL PROTEIN, SERUM 7.7 g/dL (6.0-8.3)
[2020-10-05 20:46] LABS: B-TYPE NATRIURETIC PEPTIDE 358 pg/mL (0-100)
[2020-10-05] MEDS ORDERED: LIDOCAINE 5% TOPICAL PATCH TP ONE (21:06)
[2020-10-05] MEDS ORDERED: ORPHENADRINE CITRATE 30 MG/ML ML ONE (21:06)
== END 2020-10-05 21:31 | disposition home or self-care (01) ==
LOC: EDH 19:27
DX: R07.89 Other chest pain (principal); S39.012A Strain of muscle, fascia and tendon of lower back, initial encounter; J20.9 Acute bronchitis, unspecified; J44.9 Chronic obstructive pulmonary disease, unspecified; I48.91 Unspecified atrial fibrillation; Z90.49 Acquired absence of other specified parts of digestive tract; Z88.0 Allergy status to penicillin; X58.XXXA Exposure to other specified factors, initial encounter; Y93.89 Activity, other specified; Y92.89 Other specified places as the place of occurrence of the external cause; Y99.8 Other external cause status
CPT/HCPCS: 36415; 71046; 80053; 83690; 83880; 84484; 85025; 85610; 85730; 93005; 96374; 99285; J2360